=== PATIENT | female | born 1980 | race Caucasian/White ===

== ENCOUNTER 2023-08-21 09:21 | Outpatient (CLI) | payer BC | END 2023-08-21 09:22 | disposition home or self-care (01) | LOC: CSHMAMMO 09:21 → CSHRAD 09:22 | PROVIDERS: ATTEND Physician Assistant | DX: Z12.31 Encounter for screening mammogram for malignant neoplasm of breast (principal); R22.31 Localized swelling, mass and lump, right upper limb; N64.89 Other specified disorders of breast; R79.89 Other specified abnormal findings of blood chemistry; Z98.82 Breast implant status | CPT/HCPCS: 76536; 76999; 77063; 77067 ==

== ENCOUNTER 2023-09-01 13:34 | Outpatient (CLI) | payer BC | END 2023-09-01 13:35 | disposition home or self-care (01) | LOC: CSHMAMMO 13:34 | PROVIDERS: ATTEND Physician Assistant | DX: N64.89 Other specified disorders of breast (principal) | CPT/HCPCS: G0279 ==